=== PATIENT | male | born 1985 | race Caucasian/White ===

== ENCOUNTER 2023-10-13 08:45 | Outpatient (AMB) | payer BC, SELFPAY ==
--- NOTE | 2023-10-13 09:08 | HO.SPINEOV ---
Intake Intake Visit Reasons: intervertebral disc disorders Intake Note: Mr. Flor is here today c/o back and neck pain. MRI done @ [place]/brought disc. Allergies No Known Allergies Allergy (Verified 10/13/23 09:09) Assessment & Plan Assessment & Plan (1) DDD (degenerative disc disease), thoracic: Code(s): M51.34 - Other intervertebral disc degeneration, thoracic region Plan Dear colleague Thank you for referring Ashwin Flor to the office today with a chief complaint of neck pain and thoracic pain. HPI: This 38-year-old male has an extensive spinal history with decompressions at T8-T9, , T9-T10, T11-12 for spinal cord compression. Neurologically he is stable. His main complaint is neck pain, posteriorly radiating to the skull base without radiation into the arms and a midthoracic pain that radiates to the mid lumbar area without radiation down his legs. Sudden movements can produce shooting pain into those areas that last 4 days. A new MRI of the thoracic spine and lumbar spine was done and he comes in to review them. The following conservative treatment options were tried without success antiinflammatories, tylenol, physician guided home exercise plan, cortisone shots PMH: Migraines Medications: Oxycodone, sertraline, meloxicam, ropinirole Allergies: NKDA Social history: Employed. Nonsmoker Physical Exam: Pleasant male. Cooperative. Neurological exam reviews no abnormalities with the exception of hyperreflexia of the lower extremities without pathological reflexes. Radiological Studies: MRI of the lumbar spine and thoracic spine done at [place] on on 08/16/2023 show myelomalacia at T11-12, which can also be seen on an MRI of 2016 and moderate spinal cord compression at this level. Furthermore it shows multilevel degenerative disc disease in the thoracic spine and arthritic changes. The cervical region shows possible C6-7 spinal canal stenosis. The lumbar MRI is normal. Impression/Plan: This patient is suffering from pain in the cervical region and thoracic patient. I explained to the patient that spinal cord compression per se does not cause pain but neurological deficits. His neurological symptoms are stable. He does have hyperreflexia of the lower extremities, which I think is old and absent pathological reflexes. Therefore no surgical intervention is required unless neurological symptoms develop. It is unfortunate that the thoracic spine shows so many degenerative changes in this young male. I have no surgical options to treat his pain. Thank you for allowing me to participate in your patients care. Do not hesitate to call me with any questions or concerns. total time spent was 45 minutes in counseling ,coordination of plan, personal review of imaging, surgical decision making and subsequent plan Carlitos Martin MD, PhD [facility] Trained Neurosurgeon Director, [facility] Coding Level of Care Code New Pt Level 4 (86853) Diagnoses DDD (degenerative disc disease), thoracic M51.34
== END 2023-10-13 09:40 | disposition home or self-care (01) ==
PROVIDERS: Referring Provider Pediatrics; Visit Provider Neurological Surgery
DX: M51.34 Other intervertebral disc degeneration, thoracic region (principal)
CPT/HCPCS: 99204

== ENCOUNTER → 2023-10-13 08:45 | Outpatient (BNVA) | payer BC, SELFPAY | PROVIDERS: Visit Provider Neurological Surgery ==